=== PATIENT | female | born 1990 | race Caucasian/White ===

== ENCOUNTER 2017-08-27 00:41 | Inpatient (IN) | payer OTHER ==
[~2017-08-27] VITALS: Ht 160 cm; Wt 88.0 kg
[2017-08-27] MEDS ORDERED: PREN1TAB80 PO (02:34)
[2017-08-27] MEDS ORDERED: RINGERS SOLUTION,LACTATED 1,000 ML IV PRN (03:21)
[2017-08-27] MEDS ORDERED: OXYTOCIN 30 UNITS/LACT RINGERS 500 ML IV ONE (03:21)
[2017-08-27] MEDS ORDERED: BETAMETHASONE SOLUSPAN 6 MG/ML 5 ML VIAL IM ONE (03:30)
[2017-08-27] MEDS ORDERED: CITRIC ACID/SODIUM CITRATE 30 ML SOLUTION UDCUP PO PRN (03:30)
[2017-08-27] MEDS ORDERED: LIDOCAINE HCL/PF 1% 30 ML VIAL INJ PRN (03:30)
[2017-08-27] MEDS ORDERED: FentaNYL CITRATE-PF 100 MCG/2 ML VIAL IVP PRN ×4 (03:30→15:00)
[2017-08-27] MEDS ORDERED: METOCLOPRAMIDE HCL 5 MG/ML 2 ML VIAL IVP PRN (03:30)
[2017-08-27 03:55] LABS: BASOPHILS % (AUTO) 0.7 % (0.0-2.0); EOSINOPHILS % (AUTO) 1.6 % (1.0-6.0); HEMATOCRIT 31.9 % (36-46); HEMOGLOBIN 10.8 g/dL (12.0-16.0); LYMPHOCYTES # (AUTO) 2.3 K/uL (1.0-4.8); LYMPHOCYTES % (AUTO) 26.5 % (22.0-44.0); MEAN CORPUSCULAR HEMOGLOBIN 30.2 pg (26.0-34.0); MEAN CORPUSCULAR VOLUME 89 fL (80-100); MONOCYTES # (AUTO) 0.7 K/uL (0.1-1.0); MONOCYTES % (AUTO) 8.6 % (2.0-9.0); NEUTROPHILS # (AUTO) 5.5 K/uL (1.8-7.7); NEUTROPHILS % (AUTO) 62.6 % (40.0-70.0); RED BLOOD CELL COUNT(AUTO) 3.59 MIL/uL (4.00-5.20); RED CELL DISTRIBUTION WIDTH 13.6 % (11.5-14.5); WHITE BLOOD COUNT (AUTO) 8.7 K/uL (4.5-11.0)
[2017-08-27] MEDS ORDERED: ROPIVACAINE HCL 0.2% 100 ML ED ONE ×2 (04:18→11:13)
[2017-08-27] MEDS ORDERED: ROPIVACAINE HCL 0.2% 100 ML ED PRN (05:13)
[2017-08-27] MEDS ORDERED: INFLUENZA VIRUS VACCINE QVS 2017-18 (3YR+)/PF 60 MCG/0.5 ML SYRINGE IM ONE (05:15)
[2017-08-27] MEDS: RINGERS SOLUTION,LACTATED 1,000 ML IV SCH ×2 (05:54→16:30)
[2017-08-27] MEDS ORDERED: OXYTOCIN 30 UNITS/LACT RINGERS 500 ML IV PRN (06:21)
[2017-08-27] MEDS ORDERED: OXYGEN THERAPY IH SCH ×5 (08:00→20:00)
[2017-08-27] MEDS ORDERED: LIDOCAINE HCL 1%/EPI 1:200,000/PF 10 ML VIAL ONE (14:21)
[2017-08-27] MEDS ORDERED: LIDOCAINE HCL 2%/EPI 1:200,000/PF 10 ML VIAL ONE (14:21)
[2017-08-27] MEDS ORDERED: CeFAZolin 2 GM/DEXTROSE 50 ML IV ONE (14:30)
[2017-08-27] MEDS ORDERED: NACL ISO OSM IV ONE (14:54)
[2017-08-27] MEDS ORDERED: GENTAMICIN IV ONE (14:54)
[2017-08-27] MEDS ORDERED: GENTAMICIN 80 MG/NACL ISO-OSM 100 ML IV ONE (14:58)
[2017-08-27] MEDS ORDERED: NALBUPHINE HCL 10 MG/ML VIAL IVP PRN ×3 (15:00→15:30)
[2017-08-27] MEDS ORDERED: ONDANSETRON HCL 4 MG/2 ML VIAL IVP PRN ×2 (15:00→15:30)
[2017-08-27] MEDS ORDERED: DiphenhydrAMINE HCL 50 MG/ML VIAL IVP PRN ×2 (15:00→15:30)
[2017-08-27] MEDS ORDERED: PROMETHAZINE HCL 12.5 MG in SODIUM CHLORIDE 0.9% 50 ML IV PRN (15:00)
[2017-08-27] MEDS ORDERED: MEPERIDINE-PF 25 MG/ML SYRINGE IVP PRN (15:00)
[2017-08-27] MEDS ORDERED: FentaNYL CITRATE-PF 100 MCG/2 ML VIAL ONE (15:12)
[2017-08-27] MEDS ORDERED: MORPHINE SULFATE/PF 0.5 MG/ML 10 ML AMP ONE (15:15)
[2017-08-27] MEDS ORDERED: ACETAMINOPHEN 1000 MG/ISO-OSM 100 ML IV ONE (15:21)
[2017-08-27] MEDS ORDERED: NALOXONE HCL 0.4 MG/ML VIAL IVP PRN (15:30)
[2017-08-27] MEDS ORDERED: LANOLIN 7 GM OINTMENT TP PRN (15:30)
[2017-08-27] MEDS ORDERED: CLINDAMYCIN 900 MG/D5% WATER 50 ML IV ONE (15:43)
[2017-08-27] MEDS ORDERED: RINGERS SOLUTION,LACTATED 1,000 ML IV ONE (15:52)
[2017-08-27] MEDS: DEXTROSE 5%-0.45% SODIUM CHL 1,000 ML IV SCH (20:56)
[2017-08-27] MEDS: MAGNESIUM HYDROXIDE SUSPENSION 30 ML UDCUP PO SCH (21:00)
[2017-08-27] MEDS: ACETAMINOPHEN 1000 MG/ISO-OSM 100 ML IV SCH (22:59)
[2017-08-28] MEDS: DEXTROSE 5%-0.45% SODIUM CHL 1,000 ML IV SCH ×3 (01:47→12:20)
[2017-08-28] MEDS ORDERED: 0.9% SODIUM CHLORIDE 10 ML VIAL IVP ONE (07:28)
[2017-08-28] MEDS ORDERED: DEXAMETHASONE SOD PHOS 4 MG/ML VIAL IVP ONE (07:28)
[2017-08-28] MEDS ORDERED: PHENYLEPHRINE HCL 10 MG/ML VIAL IVP ONE (07:28)
[2017-08-28] MEDS ORDERED: OXYTOCIN 10 UNITS/ML VIAL IM ONE (07:28)
[2017-08-28] MEDS ORDERED: ONDANSETRON HCL 4 MG/2 ML VIAL IVP ONE (07:28)
[2017-08-28] MEDS: ACETAMINOPHEN 1000 MG/ISO-OSM 100 ML IV SCH (08:12)
[2017-08-28] MEDS: MAGNESIUM HYDROXIDE SUSPENSION 30 ML UDCUP PO SCH ×2 (08:51→20:38)
[2017-08-28] MEDS: IBUPROFEN 800 MG TABLET PO SCH ×3 (08:53→20:40)
[2017-08-28] MEDS: ACETAMINOPHEN/CODEINE 300-30 MG TABLET PO PRN ×2 (14:15→18:52)
[2017-08-28 20:19] VITALS: BP 110/59
[2017-08-29] MEDS: ACETAMINOPHEN/CODEINE 300-30 MG TABLET PO PRN ×5 (02:08→20:53)
[2017-08-29] MEDS: IBUPROFEN 800 MG TABLET PO SCH ×3 (04:23→16:56)
[2017-08-29] MEDS: MAGNESIUM HYDROXIDE SUSPENSION 30 ML UDCUP PO SCH ×2 (09:06→20:53)
[2017-08-30] MEDS: IBUPROFEN 800 MG TABLET PO SCH ×3 (00:07→12:15)
[2017-08-30] MEDS: MAGNESIUM HYDROXIDE SUSPENSION 30 ML UDCUP PO SCH (09:00)
[2017-08-30] MEDS ORDERED: IBUP-2071 PO (14:11)
== END 2017-08-30 17:50 | disposition home or self-care (01) | DRG 765 ==
LOC: UNDOADMOB 00:41 → 4S 00:41 → OBSVTOIN 06:51 → 4S 16:00
PROVIDERS: ADMIT Obstetrics & Gynecology; ATTEND Obstetrics & Gynecology
PROC: 10D00Z1 Extraction of Products of Conception, Low, Open Approach (ICD-10-PCS; principal; 2017-08-27)
DX: O62.0 Primary inadequate contractions (principal); O60.14X0 Preterm labor third trimester with preterm delivery third trimester, not applicable or unspecified; Z37.2 Twins, both liveborn; Z3A.35 35 weeks gestation of pregnancy
CPT/HCPCS: 76811; 76812; 86850; 86900; 86901; 89060; 90471; J0131; J0690; J0702; J1100; J1580; J2274; J2370; J2405; J2590; J2795; J3010; J3490; J7120